=== PATIENT | female | born 1955 | race African-American/Black ===

== ENCOUNTER 2018-09-26 08:40 | Emergency (ER) | payer MEDICARE ==
[~2018-09-26] VITALS: Ht 172.7 cm; Wt 74.0 kg
[2018-09-26 10:38] LABS: CLARITY URINE CLEAR (CLEAR); COLOR URINE DARK YELLOW (YELLOW); KETONES URINE NEGATIVE (NEGATIVE); LEUKOCYTE ESTERASE URINE 2+ (NEGATIVE); NITRITE URINE POSITIVE (NEGATIVE); OCCULT BLOOD URINE 2+ (NEGATIVE); PH URINE 5.5 (4.5-8.0); PROTEIN URINE NEGATIVE (NEGATIVE); SPECIFIC GRAVITY URINE 1.013 (1.005-1.030); UROBILINOGEN URINE >8.0 E.U./dL (0.2-1.0)
[2018-09-26] MEDS ORDERED: SODIUM CHLORIDE 0.9% 1,000 ML IV ONE (10:51)
[2018-09-26] MEDS ORDERED: CEFTRIAXONE 1 G PREMIX 50 ML IV ONE (11:00)
[2018-09-26] MEDS ORDERED: PHENAZOPYRIDINE HCL 100MG TABLET PO ONE (11:00)
[2018-09-26 12:00] VITALS: BP 159/86
== END 2018-09-26 12:09 | disposition home or self-care (01) ==
LOC: ER 09:17
DX: N10 Acute pyelonephritis (principal); E05.90 Thyrotoxicosis, unspecified without thyrotoxic crisis or storm; Z86.73 Personal history of transient ischemic attack (TIA), and cerebral infarction without residual deficits; Z98.890 Other specified postprocedural states
CPT/HCPCS: 81003; 87077; 87086; 87186; 96365; 99283; J0696; J7030